=== PATIENT | male | born 1995 | race Two or more races ===

== ENCOUNTER 2019-04-30 22:01 | Emergency (ER) | payer SELFPAY ==
[~2019-04-30] VITALS: Ht 165.1 cm; Wt 65.3 kg
[2019-04-30 22:40] VITALS: BP 113/71
[2019-04-30] MEDS ORDERED: HYDROcodone/Acetamin 5/325 tab ORAL ONE (23:00)
--- NOTE | 2019-04-30 23:27 | Diagnostic Imaging Report ---
EXAM: CT Lumbar Spine Without Intravenous Contrast CLINICAL HISTORY: PAIN TECHNIQUE: Axial computed tomography images of the lumbar spine without intravenous contrast. CTDI is 10 mGy and DLP is 421 mGy-cm. One or more of the following dose reduction techniques were used: automated exposure control, adjustment of the mA and/or kV according to patient size, use of iterative reconstruction technique. COMPARISON: No relevant prior studies available. FINDINGS: Vertebrae: No acute fracture or subluxation. Discs/spinal canal/neural foramina: No acute findings. Soft tissues: Unremarkable. IMPRESSION: No acute fracture or subluxation.
[2019-04-30] MEDS ORDERED: HYDROCODON-ACE1 EA15 ORAL (23:38)
[2019-04-30] MEDS ORDERED: VALIUM5 MG ORAL (23:38)
--- NOTE | 2019-04-30 23:39 | Emergency Room Report ---
History of Present Illness General Chief Complaint: General Complaint Source: Patient Present Illness HPI 23-year-old male with no past medical history. He presents with complaint of back pain. Onset was 4 days ago. Occurred acutely. He was in the bathroom and bent over. He felt a sharp pain to his right lower back. Since then is been hurting. Pain going down his right leg. No incontinence of bowel or urine. No anesthesia. No trauma. No fever. He went to his primary care doctor who put him on Motrin. Is not helping. Pain is 9 out of 10. Worse with movement. Worse with standing or bearing weight. Better with rest. Allergies: Coded Allergies: No Known Allergies (Unverified , 04/30/19) Patient History Past Medical History: see triage record, old chart reviewed Past Surgical History: none Pertinent Family History: none Social History: Denies: smoking Immunizations: other Reviewed Nursing Documentation: PMH: Agreed; PSxH: Agreed Nursing Documentation-PMH Past Medical History: No Stated History Review of Systems Eye: Denies: eye pain, blurred vision ENT: Denies: ear pain, nose congestion, throat swelling Respiratory: Denies: cough, shortness of breath Cardiovascular: Denies: chest pain, palpitations Gastrointestinal: Denies: abdominal pain, diarrhea, nausea, vomiting Musculoskeletal: Reports: back pain; Denies: joint pain Skin: Denies: rash Neurological: Denies: headache, numbness Endocrine: Denies: increased thirst, increased urine Hematologic/Lymphatic: Denies: easy bruising All Other Systems: negative except mentioned in HPI Physical Exam Vital Signs Date Time Temp Pulse Resp B/P (MAP) Pulse Ox O2 Delivery O2 Flow Rate FiO2 04/30/19 22:18 100.4 118 18 113/71 (85) 97 Room Air Vitals with low-grade fever. Repeat temperature normal. Heart rate 81. Sp02 EP Interpretation: reviewed, normal General Appearance: well appearing, no apparent distress, alert Head: normocephalic, atraumatic Eyes: bilateral eye PERRL, bilateral eye EOMI ENT: hearing grossly normal, normal pharynx Neck: full range of motion, supple, no meningismus Respiratory: chest non-tender, lungs clear, normal breath sounds Cardiovascular #1: regular rate, rhythm, no murmur Gastrointestinal: normal bowel sounds, non tender, no mass, no organomegaly, no bruit, non-distended Musculoskeletal: back normal - Tenderness to the right lower paraspinous muscle. No anesthesia. No step-off., normal range of motion, gait/station normal Psychiatric: mood/affect normal Medical Decision Making Diagnostic Impression: Primary Impression: Low back pain Qualified Codes: M54.41 - Lumbago with sciatica, right side ER Course Patient with back pain. No evidence any cauda equina syndrome, spinal abscess or neoplastic process. No evidence of any kidney stone. Initially had a temperature but repeat was normal prior to any intervention. No evidence of any infectious cause. CT/MRI/US Diagnostic Results CT/MRI/US Diagnostic Results : Imaging Test Ordered: CT L-spine Impression Per radiologist negative. Last Vital Signs Date Time Temp Pulse Resp B/P (MAP) Pulse Ox O2 Delivery O2 Flow Rate FiO2 04/30/19 22:40 100.4 18 113/71 97 Room Air 04/30/19 22:40 118 Status: improved Disposition: HOME, SELF-CARE Condition: Stable Scripts Diazepam* (VALIUM*) 5 Mg Tablet 5 MG ORAL TID PRN for spasm, #15 TAB 0 Refills Prov: Demarcus Jordan MD 04/30/19 Hydrocodone/Acetaminophen 5-325* (HYDROCODONE/ACETAMINOPHEN 5-325*) 1 Each Tablet 1 TAB ORAL Q6H PRN for For Pain, #20 TAB 0 Refills Prov: Demarcus Jordan MD 04/30/19 Additional Instructions: Continue with ibuprofen. Follow-up with your doctor in 7 days. If symptoms do not improve in a few weeks, you may need physical therapy and or MRI. Return if worse. Demarcus Jordan MD Apr 30, 2019 23:39
[2019-04-30 23:43] VITALS: BP 113/71
== END 2019-04-30 23:43 | disposition home or self-care (01) ==
LOC: EMR 22:17
DX: M54.41 Lumbago with sciatica, right side (principal)
CPT/HCPCS: 72131; 99284